=== PATIENT | female | born 1955 | race Caucasian/White ===

== ENCOUNTER 2022-06-05 09:58 | Outpatient (CLI) | payer BC | END 2022-06-05 09:59 | disposition home or self-care (01) | LOC: CSHLAB 09:58 | PROVIDERS: ATTEND Surgery | DX: Z20.822 Contact with and (suspected) exposure to COVID-19 (principal) | CPT/HCPCS: 87811 ==

== ENCOUNTER 2022-06-09 05:44 | Day surgery (SDC) | payer BC ==
[2022-06-05 13:27] VITALS: BMI 27.9
[2022-06-09] MEDS ORDERED: Bupivacaine 0.25% HCL 30 ML VIAL ONE (06:28)
[2022-06-09] MEDS ORDERED: EPINEPHrine 1 MG/ML AMP ONE (06:28)
[2022-06-09] MEDS ORDERED: Lidocaine 1% MPF 2 ML VIAL ONE (06:42)
[2022-06-09] MEDS ORDERED: CEFAZOLIN 2 GM VIAL ONE (06:56)
[2022-06-09] MEDS ORDERED: Fentanyl 100 MCG/2 ML VIAL ONE (07:09)
[2022-06-09] MEDS ORDERED: PROPOFOL 40 ML ONE (07:09)
[2022-06-09] MEDS ORDERED: Midazolam HCl 2 mg/2 ml Vial ONE (07:09)
[2022-06-09] MEDS ORDERED: Lidocaine 1% PF 5 ML VIAL ONE (07:09)
[2022-06-09] MEDS ORDERED: Acetaminophen 325 MG TAB PO PRN (08:32)
[2022-06-09] MEDS ORDERED: HYDROcodone/Acetaminophen 5/325 mg Tablet ONE (08:33)
== END 2022-06-09 09:00 | disposition home or self-care (01) ==
LOC: CSHSDC 05:44
PROVIDERS: ATTEND Surgery
PROC: 02HV33Z Insertion of Infusion Device into Superior Vena Cava, Percutaneous Approach (ICD-10-PCS; principal; 2022-06-09)
PROC: B518ZZA Fluoroscopy of Superior Vena Cava, Guidance (ICD-10-PCS; principal; 2022-06-09)
DX: C93.10 Chronic myelomonocytic leukemia not having achieved remission (principal); D46.9 Myelodysplastic syndrome, unspecified; I10 Essential (primary) hypertension; E78.00 Pure hypercholesterolemia, unspecified; Z79.899 Other long term (current) drug therapy; Z20.822 Contact with and (suspected) exposure to COVID-19; Z90.49 Acquired absence of other specified parts of digestive tract; Z90.710 Acquired absence of both cervix and uterus
CPT/HCPCS: C1788; J0171; J0690; J1642; J2250; J2704; J3010; S0020